=== PATIENT | female | born 1990 | race Caucasian/White ===

== ENCOUNTER 2025-04-25 15:14 | Outpatient (CLI) | payer BC, SELFPAY | END 2025-04-25 15:15 | disposition home or self-care (01) | PROVIDERS: Visit Provider Family Medicine | DX: Z00.00 Encounter for general adult medical examination without abnormal findings (principal); O24.419 Gestational diabetes mellitus in pregnancy, unspecified control | CPT/HCPCS: 80053; 80061 ==